=== PATIENT | male | born 1985 | race Two or more races ===

== ENCOUNTER 2017-03-25 12:20 | Emergency (ER) | payer MEDICAID ==
[~2017-03-25] VITALS: Ht 170.2 cm; Wt 81.6 kg
[2017-03-25 12:38] VITALS: BP 110/66
== END 2017-03-25 18:56 | disposition home or self-care (01) ==
LOC: ER 12:20
DX: J20.9 Acute bronchitis, unspecified (principal); J02.9 Acute pharyngitis, unspecified